=== PATIENT | female | born 1965 ===

== ENCOUNTER 2016-09-19 10:49 | Day surgery (SDC) | payer MEDICAID ==
[2016-09-18 08:14] VITALS: BMI 27.8
[2016-09-19] MEDS ORDERED: Sodium Chloride 0.9% 500 ML IV ONE ×2 (12:10→12:25)
[2016-09-19] MEDS ORDERED: cefOXitin IV 1 gm in Dextrose 0 GM/0 ML BAG IVPB ONE (12:10)
[2016-09-19] MEDS ORDERED: Midazolam 2 MG/2 ML VIAL ONE (12:11)
[2016-09-19] MEDS ORDERED: Propofol 10 mg/ml Inj (20 ML) ONE (12:11)
[2016-09-19] MEDS ORDERED: HYDROmorphone 0.5 mg/0.5 ml ISec IVP PRN (12:39)
[2016-09-19 13:14] VITALS: O2SAT 100
--- NOTE | 2016-09-19 14:30 | OP ---
PROCEDURE DATE: 09/19/2016 PREOPERATIVE DIAGNOSIS: Menometrorrhagia. POSTOPERATIVE DIAGNOSIS: Menometrorrhagia, pending histopathology report. PROCEDURE PERFORMED: Hysteroscopy and a fractional dilatation and curettage. ANESTHESIA: General. ANESTHESIOLOGIST: Dr. Hernandez SURGEON: Dr. Gabi Baer OPERATIVE FINDINGS: Cervix is firm, closed. Uterus is slightly enlarged to 6-8 weeks gestational si ze, anteriorly located, with moderate vaginal bleeding and several endometrial tissues noted through the hysteroscope. Adnexa were negative. OPERATIVE TECHNIQUE: The patient was prepped and draped in the usual sterile manner under general an esthesia. Internal examination was performed. Anterior, posterior vaginal retractors applied. The uterus was sounded to 4 inches in depth. With Hegar's dilators, the internal and external cervical o s were dilated. With a hysteroscope size 6 mm and with a distention media of saline solution was int roduced and the endocervical canal were visualized as well as the endometrial cavity. There were not ed several tissues, hyperplastic tissues, noted over the anterior and posterior surface of the uterus and after total visualization of the endometrial cavity was performed, the hysteroscope was removed and followed by a fractional dilatation and curettage. With an endocervical curette size 3, a fracti onal dilatation and curettage was performed obtaining minimal amount of endocervical tissues and mode rate amount of endometrial tissues. After thorough and establishing hemostasis were obtained, the en dometrial cavity was observed to be under hemostatic condition and the curettage was obtained and spe cimens consisted of the endocervical and endometrial tissues were sent to the laboratory for histopat hologic examination. The patient was transferred to recovery room in stable condition. Estimated bl ood loss around 5 mL, and the patient was on thromboelastic stockings while in the operating room as well as in the recovery room. Gabi Baer MD cc: [id number] TT: 09/19/2016 14:29:03 en
[2016-09-19 14:45] VITALS: RESP 18
[2016-09-19 15:46] VITALS: BP 114/63; PULSE 64; TEMP 97.3
== END 2016-09-19 15:46 | disposition home or self-care (01) ==
LOC: C.SDS 10:49
PROVIDERS: ATTEND Obstetrics & Gynecology
DX: N92.1 Excessive and frequent menstruation with irregular cycle (principal)
CPT/HCPCS: 58558; 88305; J1100; J1885; J2250; J2405; J2704; J2765; J3010; J7040